=== PATIENT | male | born 2000 | race Caucasian/White ===

== ENCOUNTER 2019-01-29 11:45 | Emergency (ER) | payer OTHER ==
--- NOTE | 2019-01-29 14:12 | EDPHY ---
General Time Seen by Provider: 01/29/19 14:11 Narrative: CLINICAL IMPRESSION: Open wound penis ASSESSMENT/PLAN: Patient is a 18-year-old male with no significant medical history who presents to the emergency department with open wounds and scabbing on the shaft of his penis. Patient is afebrile, nontoxic appearing and in no acute distress. Physical examination reveals multiple scabbed wounds at the base of his penis, one pustule noted more distally. There were no vesicular lesions. Areas were nontender to palpation, not consistent with herpetic lesions or syphilis. There was no evidence of significant cellulitis, systemic infection, Ina's gangrene, abscess, necrotizing skin infection or deep space infection. A GC was obtained and is still pending, patient has been sexually active with 2 separate Partners. Will treat prophylactically with azithromycin and Rocephin, patient will also treat areas with mupirocin ointment. No indications at this time for other oral antibiotic therapy. There were no open wounds to obtain wound culture. He is a student at the [employer], he does not have a primary care provider. Infectious Disease referral has been provided, he will follow up in the next 2-3 days for repeat examination. Return precautions discussed- he will return for fever, redness, swelling, warmth, or streaking around the wounds, new lesions, pain out of proportion or for any other new, worsening or worrisome symptoms. Patient verbalizes understanding and he is in agreement with plan. DIFFERENTIAL DX: Differential diagnosis including but not limited to and in no particular order herpes virus, syphilis, gonorrhea, chlamydia, cellulitis, necrotizing skin infection, Ina's gangrene, CHIEF COMPLAINT: Penile rash, wound check HPI: Patient is a 18-year-old male with no significant medical history who presents to the emergency department complaining of a rash on the shaft of his penis. Patient reports several days ago he noticed a pimple on the shaft of his penis, he did pop it and reports purulent drainage. Patient is concerned as it is not going away and complains of continued rash. He denies any discomfort or itching at the site. It is not painful. He denies any dysuria, hematuria or discharge. He denies any testicular pain or swelling. He is sexually active, reportedly with 2 partners in this last week. On both occasions the patient reports contraceptive use however the area where he has a rash was unprotected. Does report a similar episode in the past which resolved on its own, no history of herpes or other STI. Denies any fevers, chills, nausea, vomiting or abdominal pain. PAST MEDICAL HISTORY: Denies Family History: Noncontributory Social History: Regular marijuana use, occasional alcohol, denies cigarette smoking. ROS: A full 10 point review of systems was negative except for those mentioned in HPI. PHYSICAL EXAM: General Appearance: Well-appearing, no acute distress. HENT: Normocephalic, atraumatic. External ears are normal. Nares are clear, mucosa is pink. Oropharynx is clear. Eyes: PERRLA, no acute vision change, nystagmus, swelling, discharge, pain or photosensitivity. Conjunctiva pink, no pallor or injection Neck: Supple, nontender, no lymphadenopathy, no midline pain, FROM. Respiratory: There are no retractions, lungs are clear to auscultation. Cardiac: Regular rate and rhythm, no murmurs or gallops. Gastrointestinal: Abdomen is soft, nontender, bowel sounds normal, no masses/ hernia, no rigidity, guarding or focal peritoneal findings. : Chaperoned with EMANUEL Baumann. Patient with multiple scabs along the base of the shaft of the penis, no surrounding erythema. Patient was 1 pustule on the right lateral aspect of the base of the shaft. There is no erythema, fluctuance or induration. Distal penis unremarkable, no erythema at the meatus , no purulent drainage. No testicular tenderness or swelling. Skin: Warm, dry. MEDICAL DECISION MAKING: Patient was seen independently. Secondary supervising physician at time of evaluation was Dr. Valente, he did not evaluate this patient however we discussed exam findings and plan of care. Diagnosis: Penile wounds. New, requires workup Summary: See Assessment and Plan for summary of ED visit Clinical lab tests: Pending. Independent visualization of images, tracing, or specimens: Not applicable. Decision to obtain medical records or history from someone other than the patient: No Review / Summarize previous medical records: Yes Discussed patient with another provider: Yes, Dr. Valente Patient Progress: Stable, discharged. - History Smoking Status: Never smoked - Objective Vital Signs: Initial Vital Signs Temperature (C) 36.6 C 01/29/19 12:47 Heart Rate 93 01/29/19 12:47 Respiratory Rate 18 01/29/19 12:47 Blood Pressure 127/62 H 01/29/19 12:47 O2 Sat (%) 96 01/29/19 12:47 O2 Delivery Mode Room Air Allergies/Adverse Reactions: No Known Allergies Allergy (Unverified 01/29/19 12:49) Home Medications: Medication Instructions Recorded Mupirocin 1 theresa TP TID #1 each 01/29/19 Laboratory Results: 01/29/19 01/29/19 14:15 14:15 Urine Color YELLOW Urine Appearance CLEAR Urine pH 7.0 (5.0-7.5) Ur Specific [place] 1.026 (1.002-1.030) Urine Protein NEGATIVE (NEGATIVE) Urine Ketones 1+ H (NEGATIVE) Urine Blood NEGATIVE (NEGATIVE) Urine Nitrate NEGATIVE (NEGATIVE) Urine Bilirubin NEGATIVE (NEGATIVE) Urine Urobilinogen NEGATIVE EU EU (0.2-1.0) Ur Leukocyte Esterase NEGATIVE (NEGATIVE) Urine Glucose NEGATIVE (NEGATIVE) C.trachomatis RNA (TMA) Pending N.gonorrhoeae RNA (TMA) Pending Medications Given: Discontinued Medications Azithromycin (Zithromax) 1,000 mg PO EDNOW ONE PRN Reason: Protocol Stop: 01/29/19 15:05 Last Admin: 01/29/19 15:11 Dose: 1,000 mg Ceftriaxone Sodium (Rocephin Im Syringe) 250 mg IM EDNOW ONE PRN Reason: Protocol Stop: 01/29/19 15:06 Last Admin: 01/29/19 15:45 Dose: 250 mg Departure - Departure Disposition: Home, Routine, Self-Care Clinical Impression: Open wound of penis Qualifiers: Encounter type: initial encounter Qualified Code(s): S31.20XA - Unspecified open wound of penis, initial encounter Condition: Good Instructions: Wound Infection (ED) Additional Instructions: DISCHARGE INSTRUCTIONS FROM YOUR DOCTOR Thank you for visiting our emergency department today. Please keep in mind that discharge from the emergency department does not mean that there is nothing wrong - it simply means that we have not identified an emergency condition that requires further evaluation or treatment in the hospital. You should always plan to follow up with primary care for re-evaluation of your condition in the next 2-3 days. Your GC is still pending, you will be notified if positive however you have been treated prophylactically in the emergency department. I would like you to continue applying mupirocin ointment twice per day on the wounds on your penis. Make sure to keep these area clean and dry. Please abstain from sexual intercourse until your wounds have healed. Please follow-up with your infectious disease, you have been provided a referral. People present with illnesses and injuries in different ways, and it is always possible that we have missed something. You may always return for re-evaluation if symptoms worsen or if they are not improving or if you develop new/different symptoms. Again, thank you for choosing our emergency department. We hope that you feel better. Referrals: Devan Peterson MD [Medical Doctor] - 2-3 days, call for appt. Flor Yanes MD [Medical Doctor] - As per Instructions (Please establish care with a primary care as needed.) Prescriptions: Mupirocin 1 theresa TP TID #1 each
[2019-01-29] MEDS ORDERED: AZITHROMYCIN 250 MG TAB PO ONE (15:04)
[2019-01-29 16:26] VITALS: BP 118/82
[2019-01-30 12:09] LABS: GC AMPLIFICATION GENPROBE NEGATIVE (NEGATIVE)
== END 2019-01-29 16:10 | disposition home or self-care (01) ==
DX: S31.20XA Unspecified open wound of penis, initial encounter (principal)
CPT/HCPCS: J0696